=== PATIENT | female | born 1935 | race Caucasian/White ===

== ENCOUNTER 2017-07-11 07:58 | Day surgery (SDC) | payer MEDICARE ==
[2017-07-11] VITALS (7 sets, daily range): BP systolic 95–133; BP diastolic 46–77; PULSE 74–80; RESP 16–20; TEMP 98.1; O2SAT 92–96
[~2017-07-11] VITALS: Ht 157.5 cm; Wt 50.0 kg
[~2017-07-11 07:58] MED LIST: ALBU17I INH; AMLO5TAB96 PO; ASPI325T PO; ASPI81TA82 PO; CALC-137 PO; COQ150CA OR; FELO10TA PO; FLAXMIS XX; FURO1TAB93 PO; GARL500C6 PO; LEVO.05 PO; NIAC500T5 PO; NITR0.4S SL; OMEGCAP2 OR; POTA-71 PO; ROSU20 PO; ROSU40 PO; TAB-TAB PO; [UNRECOGNIZED DRUG - CODE]; [UNRECOGNIZED DRUG - CODE] TL
[2017-07-11] MEDS ORDERED: LIDOCAINE 1%/EPINEPHrine 1:100,000 SOLN 50 ML VIAL ONE (08:27)
[2017-07-11] MEDS ORDERED: SODIUM CHLOR 0.9% 1000 ML INJ 1,000 ML IV SCH (08:45)
[2017-07-11] MEDS ORDERED: FURO40TA PO (08:50)
[2017-07-11] MEDS ORDERED: ASPI81TA19 (08:50)
[2017-07-11] MEDS ORDERED: CALC1TAB87 PO (08:50)
[2017-07-11] MEDS ORDERED: ROSU20 PO (08:50)
[2017-07-11] MEDS ORDERED: MULT-65 PO (08:50)
[2017-07-11] MEDS ORDERED: ALBU6.7H INH (08:50)
[2017-07-11] MEDS ORDERED: POTA2.5T (08:50)
[2017-07-11] MEDS ORDERED: OMEGCAP PO (08:50)
[2017-07-11] MEDS ORDERED: LEVO50TA4 PO (08:50)
[2017-07-11] MEDS ORDERED: CO Q50CA (08:50)
[2017-07-11] MEDS ORDERED: NITR400A5 SL (08:50)
[2017-07-11] MEDS ORDERED: AMLO5TAB2 PO (08:50)
[2017-07-11] MEDS: MIDAZOLAM HCL 2 MG/2 ML VIAL ONE (09:13)
[2017-07-11] MEDS ORDERED: oxyCODONE/ACETAMINOPHEN 5 MG/325 MG TAB PO PRN (10:00)
--- NOTE | 2017-07-11 10:09 | RADRPT ---
EXAM DATE/TIME: 07/11/2017 09:31 [facility] COMPARISON: No previous studies available for comparison. INDICATIONS : Right lung mass SEDATION TIME: 15 minutes BIOPSY SITE: Right lung MEDICATION(S): 1.) 1 mg midazolam (Versed) IV 2.) 75 mcg fentanyl (Sublimaze) IV DEVICE(S): 1.) 17 gauge introducer 2.) 20 gauge Thrombin MEDICAL HISTORY : Cardiovascular disease. Hypertension. SURGICAL HISTORY : CABG ENCOUNTER: Initial ACUITY: 1 day PAIN SCORE: 0/10 LOCATION: Right chest A total of three core specimen(s) were obtained and sent to the laboratory for pathologic evaluation. PROCEDURE: 1. CT guided lung biopsy. Prior to the procedure informed consent was obtained. Any appropriate prior imaging studies were rev iewed. Using automated exposure control and adjustment of the mA and/or kV according to patient size, radiation dose was kept as low as reasonably achievable to obtain optimal diagnostic quality images. DICOM format image data is available electronically for review and comparison. The site was prepped in a sterile fashion. Full sterile technique was used, including cap, mask, jemal rile gloves and gown and a large sterile sheet. Hand hygiene and 2% chlorhexidine and/or betadine/al cohol prep was utilized per protocol for cutaneous antisepsis. The skin and subcutaneous tissues wer e infiltrated with local anesthetic solution. Under CT guidance 17 gauge guiding was placed on the lesion posteriorly right lung. 3 cores were obt ained. Material is sent for pathology and culture. Followup CT scan reveals no pneumothorax. Conscious sedation was performed with the prescribed dosages and duration as above in the presence of an independent trained radiology nurse to assist in the monitoring of the patient. EKG and oximetry remained stable throughout the procedure. The patient tolerated the procedure well and there were no complications. The patient was sent to Radiology Outpatient Unit in stable condition. CONCLUSION: Uncomplicated CT guided biopsy mass right lung. Culture and pathology are pending.. Smooth Pruitt MD FACR on July 11, 2017 at 10:06 Board Certified Radiologist. This report was verified electronically.
--- NOTE | 2017-07-11 11:09 | RADRPT ---
EXAM DATE/TIME: 07/11/2017 10:57 [facility] COMPARISON: No previous studies available for comparison. INDICATIONS : Evaluate for pneumothorax. Post right lung biopsy. MEDICAL HISTORY : Cardiovascular disease. Hypertension. SURGICAL HISTORY : CABG. ENCOUNTER: Subsequent ACUITY: 1 day PAIN SCORE: 0/10 LOCATION: Bilateral chest FINDINGS: Sternal wires from previous bypass. Coarse peripheral changes both lungs. No pneumothorax. The por tion of the bony skeleton visualized is unremarkable. CONCLUSION: No pneumothorax. Smooth Pruitt MD FACR on July 11, 2017 at 11:04 Board Certified Radiologist. This report was verified electronically.
== END 2017-07-11 14:10 | disposition home or self-care (01) ==
LOC: HRAD 07:58 → HRIP 07:59 → HRAD 14:10
PROVIDERS: ATTEND Family Medicine
DX: C34.91 Malignant neoplasm of unspecified part of right bronchus or lung (principal); I10 Essential (primary) hypertension; I25.10 Atherosclerotic heart disease of native coronary artery without angina pectoris; Z95.1 Presence of aortocoronary bypass graft
CPT/HCPCS: 32405; 71045; 77012; 87015; 87070; 87102; 87116; 87205; 87206; 88305; 88333; 99152; J2250; J3010; 99211; G0463

== ENCOUNTER 2017-08-29 20:30 | Emergency (ER) | payer MEDICARE ==
[~2017-08-29] VITALS: Ht 157.5 cm; Wt 50.0 kg
[~2017-08-29 20:30] MED LIST changes: -ALBU17I INH; +ALBU6.7H INH; +AMLO5TAB2 PO; -AMLO5TAB96 PO; -ASPI325T PO; +ASPI81TA19; -ASPI81TA82 PO; -CALC-137 PO; +CALC1TAB87 PO; +CO Q50CA; -COQ150CA OR; -FELO10TA PO; -FLAXMIS XX; -FURO1TAB93 PO; +FURO40TA PO; -GARL500C6 PO; -LEVO.05 PO; +LEVO50TA4 PO; +MULT-65 PO; -NIAC500T5 PO; -NITR0.4S SL; +NITR400A5 SL; +OMEGCAP PO; -OMEGCAP2 OR; +POTA2.5T; -ROSU40 PO; -TAB-TAB PO; -[UNRECOGNIZED DRUG - CODE] TL
[2017-08-29 21:05] VITALS: BP 141/66; PULSE 87; RESP 16; TEMP 97.9; O2SAT 91
[2017-08-29 21:26] VITALS: O2SAT 94
--- NOTE | 2017-08-29 21:37 | PD ---
HPI Chief Complaint: Injury Time Seen by Provider: 21:15 Travel History International Travel<30 days: No Contact w/Intl Traveler<30days: No Traveled to known affect area: No History of Present Illness HPI 82yo F with PMH of CAD s/p CABG presents to the ED with c/o right ankle pain s/ p twisting it last night around 11pm. Pt was walking in her house when she inverted her right ankle and she fell on her right side. Denies any head trauma , LOC, hip pain, focal weakness or numbness or any other complaints. Denies any fever, chest pain, dizziness, sob, n/v, abdominal pain. Not on anticoagulation. Pt able to limp but ambulates with pain. PFSH Past Medical History Asthma: No Blood Disorders: No Heart Rhythm Problems: No Cancer: Yes (skin cancer) Cardiac Catheterization: Yes Cardiovascular Problems: Yes (CAD, CABG) High Cholesterol: Yes Chemotherapy: No Congestive Heart Failure: No COPD: Yes Cerebrovascular Accident: Yes Diabetes: No Endocrine: No Gastrointestinal Disorders: No Genitourinary: No Hypertension: Yes Musculoskeletal: No Neurologic: Yes Psychiatric: No Reproductive: No Immunizations Current: Yes Radiation Therapy: No Tetanus Vaccination: Unknown Influenza Vaccination: No Menopausal: Yes Past Surgical History Cardiac Surgery: Yes Coronary Artery Bypass Graft: Yes Other Surgery: Yes (rt beast lumpectomy) Family History Family Myocardial Infarction: Yes Social History Alcohol Use: No Tobacco Use: No (QUIT 2002) Substance Use: No Allergies-Medications (Allergen,Severity, Reaction): Coded Allergies: carbamazepine (Verified Allergy, Severe, Rash, 08/29/17) green pepper (Verified Allergy, Severe, EXPLOSIVE DIARRHEA, 08/29/17) phenytoin (Verified Allergy, Severe, Rash, 08/29/17) carbidopa (Verified Allergy, Intermediate, 08/29/17) Reported Meds & Prescriptions Reported Meds & Active Scripts Active Tylenol (Acetaminophen) 325 Mg Tab 325 Mg PO Q4H PRN Reported Potassium Gluconate 550 Mg (90 Mg) Tab Crestor (Rosuvastatin Calcium) 20 Mg Tab 20 Mg PO DAILY Nitroglycerin Lingual Hampton (Nitroglycerin) 400 Mcg/Act Hampton 1 Hampton SL DIRECTED PRN ONE SPRAY NEEDED FOR CHEST PAIN, MAY REPEAT EVERY FIVE MINUTES FOR A TOTAL OF 3 DOSES OR CALL 911 IF NO RELIEF Multi-Vitamin Daily (Multiple Vitamin) 1 Tab Tab 1 Tab PO DAILY Levothyroxine (Levothyroxine Sodium) 50 Mcg Tab 50 Mcg PO DAILY Furosemide 40 Mg Tab 40 Mg PO DAILY [place]-3 Fish Oil/Vitamin (Fish Oil-Cholecalciferol) 1,000-1,000 Mg Cap 1 Cap PO DAILY Co Q-10 (Coenzyme Q10 (Ubidecarenone)) 50 Mg-5 Unit Cap Calcium 600 with Vitamin D (Calcium Carbonate-Cholecalciferol) 600-400 mg-Unit Tab 1 Tab PO DAILY Aspir-Low (Aspirin) 81 Mg Tabdr Amlodipine (Amlodipine Besylate) 5 Mg Tab 5 Mg PO DAILY Proventil Hfa 6.7 GM Inh (Albuterol Sulfate) 90 Mcg/Act Aer 2 Puff INH Q4-6H PRN [Flurometh] [Potassium Gluconate] 550 Mg PO DAILY Review of Systems Except as stated in HPI: all other systems reviewed are Neg Physical Exam Narrative GENERAL: 82yo F in mild distress. SKIN: Focused skin assessment warm/dry. HEAD: Atraumatic. Normocephalic. EYES: Pupils equal and round. No scleral icterus. No injection or drainage. ENT: No nasal bleeding or discharge. Mucous membranes pink and moist. NECK: Trachea midline. No JVD. CARDIOVASCULAR: Regular rate and rhythm. No murmur appreciated. RESPIRATORY: No accessory muscle use. Clear to auscultation. Breath sounds equal bilaterally. GASTROINTESTINAL: Abdomen soft, non-tender, nondistended. MUSCULOSKELETAL: RLE: +Edema and ttp right lateral malleolus. DP 2+. Sensation intact. +Edema in dorsum of right foot but not tender. Sensation intact. Cap refill < 2 sec. No ttp right knee or hip. NEUROLOGICAL: Awake and alert. No obvious cranial nerve deficits. Motor grossly within normal limits. Normal speech. PSYCHIATRIC: Appropriate mood and affect; insight and judgment normal. Data Data Last Documented VS Vital Signs Date Time Temp Pulse Resp B/P (MAP) Pulse Ox O2 Delivery O2 Flow Rate FiO2 08/29/17 21:26 94 Room Air 08/29/17 21:05 97.9 87 16 141/66 (91) Orders Orders Ankle, Limited (Ap&Lat) (08/29/17 ) Foot, Complete ([id number]) (08/29/17 ) Ed Discharge Order (08/30/17 00:16) Splinting (08/30/17 ) Brace Ankle Stirrup (08/30/17 ) [facility] Medical Decision Making Medical Screen Exam Complete: Yes Emergency Medical Condition: Yes Differential Diagnosis Fracture vs. contusion Narrative Course 82yo F with right ankle pain s/p twisting it last night. Denies any other complaints. Xray right ankle showed diffuse soft tissue swelling around the ankle joint. No acute fracture or joint dislocation of the ankle. Focal irregularity of the base of the fifth metatarsal. This could be a nondisplaced fracture. Recommend a 3 view xray of right foot. Xray right foot unremarkable. O2 sat was initially documented at 91% but repeat O2 sat is 94% and pt denies any chest pain or sob. Pt did not want any pain medication. Pt placed in right leg air cast. Return precautions given. Diagnosis Primary Impression: Ankle sprain Qualified Codes: S93.401A - Sprain of unspecified ligament of right ankle, initial encounter Patient Instructions: General Instructions Departure Forms: Tests/Procedures Additional Instructions: Please follow up with your primary care physician in 2-3 days. Return to the ED if symptoms worsen. Med/Other Pt SpecificInfo: Prescription(s) given Scripts Acetaminophen (Tylenol) 325 Mg Tab 325 MG PO Q4H Y for PAIN SCALE 1 TO 4, #20 TAB 0 Refills Prov: Joelle Canales 08/30/17 Disposition: 01 DISCHARGE HOME Condition: Stable CanalesJoelle corado August 29, 2017 21:37
--- NOTE | 2017-08-29 22:46 | RADRPT ---
EXAM DATE: 08/29/2017 10:40 PM EDT AGE/SEX: 82 years / Female INDICATIONS: Right ankle pain after fall. CLINICAL DATA: This is the patient's initial encounter. Patient reports that signs and symptoms have been present for 1 day and indicates a pain score of 7/10. MEDICAL/SURGICAL HISTORY: None. None. COMPARISON: No prior [facility] exams available for comparison. FINDINGS: There is soft tissue swelling around the ankle. The bony structures are grossly intact around the ank le joint. There is good alignment at the mortise joint. No foreign bodies are demonstrated. Questiona ble irregularity involving the base of the fifth metatarsal. CONCLUSION: 1. Diffuse soft tissue swelling around the ankle joint. No acute fracture or joint dislocation at the ankle. 2. Focal irregularity of the base of the fifth metatarsal. This Could be a nondisplaced fracture. Rec ommend a 3 view x-ray of the right foot. Electronically signed by: Jose Luis Sanchez MD 08/29/2017 10:44 PM EDT
--- NOTE | 2017-08-29 23:22 | RADRPT ---
EXAM DATE: 08/29/2017 11:08 PM EDT AGE/SEX: 82 years / Female INDICATIONS: Right foot pain post fall. CLINICAL DATA: This is the patient's initial encounter. Patient reports that signs and symptoms have been present for 1 day and indicates a pain score of 5/10. MEDICAL/SURGICAL HISTORY: None. None. COMPARISON: No prior exams available for comparison. FINDINGS: No definite fractures, or dislocations are identified. No definite lytic or sclerotic les ion is seen. The joint spaces are well maintained. CONCLUSION: Unremarkable study. Electronically signed by: Sherlyn Mendez MD 08/29/2017 11:21 PM EDT
[2017-08-30] MEDS ORDERED: TYLE325T PO (00:04)
== END 2017-08-30 00:50 | disposition home or self-care (01) ==
LOC: NEPD 20:30
DX: S93.401A Sprain of unspecified ligament of right ankle, initial encounter (principal); E78.00 Pure hypercholesterolemia, unspecified; I10 Essential (primary) hypertension; J44.9 Chronic obstructive pulmonary disease, unspecified; W19.XXXA Unspecified fall, initial encounter; Y93.01 Activity, walking, marching and hiking; Y92.009 Unspecified place in unspecified non-institutional (private) residence as the place of occurrence of the external cause; Z87.891 Personal history of nicotine dependence
CPT/HCPCS: 73600; 73630; 99283; L1906